=== PATIENT | female | born 1955 | race Caucasian/White ===

== ENCOUNTER → 2017-02-02 | Outpatient (CLI) | payer BC ==
[~2017-02-02] MED LIST: ALBUTEROL17 GM INH; ALLI PO; BACITRACIN30 GM TOP; CIPRO PO; CYMBALTA PO; DIOVAN PO; DULOXETINE HCL30 MG PO; FAMOTIDINE PO; FISH OIL 1,0001 EAC1 PO; HCTZ PO; KCL PO; KLOR-CON PO; LEXAPRO PO; MED FOR STOMACH; MOTRIN400 M1 PO; NEXIUM PO; OMEGA 3 FATTY ACIDS PO; OMEPRAZOLE40 M1 PO; PHENERGAN25 M1 PO; POTASSIUM GLUCO99 MG PO; POTASSIUM OTC PO; POTASSIUM99 M2 PO; PRILOSEC; PRILOSEC PO; PROAIR HFA8.5 GM INH; ROBITUSSIN100 MG/51 PO; TAGAMET PO; TYLOX 5/500 CAP1 CAP PO; VICODIN 5/500 T1 TAB PO
--- NOTE | ~2017-02-02 | CR61 ---
[facility] A Service of [facility] RADIOLOGY TEXT RESULTS PATIENT: EMELY ZARAGOZA LOCATION: [facility] : 55 UNIT #: [id number] AGE: [address]: Orly Alfonso MD SEX: F ORDER DR: [id number] [facility] [address] [place], [place] [address] [id number] O MR#: [id number] Acc #: [id number] NAME: EMELY ZARAGOZA : 1955 SEX: F STUDY DATE/TIME: 02/02/2017 13:26 UNIT: [facility] ROOM: STUDY DESCRIPTION: CR Cervical Spine Min 5 Views Attending Physician: Orly Alfonso M.D. Referring Physician: Orly Alfonso M.D. Ordering Physician: Orly Alfonso M.D. Primary Care Physician: Orly Alfonso M.D. MEDICAL IMAGING REPORT This report is preliminary unless electronic signature is present EXAM Cervical spine series dated 02/02/2017. COMPARISON None. HISTORY Upper extremity numbness, tingling. Right great toe pain and neck pain for 2-3 months. FINDINGS Frontal, lateral, swimmers, bilateral obliques, open-mouth C1-2 views were obtained. These 6 views demonstrate expected bony alignment, architecture and mineralization. No acute displaced fracture, subluxation or significant neural foraminal narrowing is seen. Positioning of the left oblique view is limited. Pre and paravertebral soft tissues are unremarkable. IMPRESSION No significant demonstrable abnormality. MRI of the cervical spine is more sensitive and specific in evaluation of disc herniation, canal stenosis and cord abnormalities. Dictated by... Trini Wright M.D. THIS IS AN ELECTRONICALLY VERIFIED REPORT Trini Wright M.D. at 02/03/2017 2:51 PM CPR/bd TD: 02/03/2017 13:47 JOB #: [id number] [facility] A Service of [facility] / [facility] RADIOLOGY TEXT RESULTS PATIENT: EMELY ZARAGOZA LOCATION: [facility] #: [id number] : 55 UNIT #: [id number] AGE: [address]: Orly Alfonso MD SEX: F ORDER DR: MEDICAL IMAGING REPORT Page 1 of 1 COPY
--- NOTE | ~2017-02-02 | CR138 ---
[facility] A Service of [facility] RADIOLOGY TEXT RESULTS PATIENT: EMELY ZARAGOZA LOCATION: [facility] : 55 UNIT #: [id number] AGE: [address]: Orly Alfonso MD SEX: F ORDER DR: [id number] [facility] [address] [place], [place] [address] [id number] O MR#: [id number] Acc #: [id number] NAME: EMELY ZARAGOZA : 1955 SEX: F STUDY DATE/TIME: 02/02/2017 13:25 UNIT: [facility] ROOM: STUDY DESCRIPTION: CR Hand 2 Views Lt Attending Physician: Orly Alfonso M.D. Referring Physician: Orly Alfonso M.D. Ordering Physician: Orly Alfonso M.D. Primary Care Physician: Orly Alfonso M.D. MEDICAL IMAGING REPORT This report is preliminary unless electronic signature is present EXAM Left hand. INDICATION Left hand numbness for 2 to 3 months. Tingling. FINDINGS AP and lateral views of the left hand were obtained. The bones appear normal. There is no degenerative change or fracture. IMPRESSION Normal left hand. Dictated by... Asael Song M.D. THIS IS AN ELECTRONICALLY VERIFIED REPORT Asael Song M.D. at 02/03/2017 3:38 PM FEL/joaquim TD: 02/03/2017 13:46 JOB #: [id number] MEDICAL IMAGING REPORT Page 1 of 1 COPY
--- NOTE | ~2017-02-02 | CR139 ---
[facility] A Service of [facility] RADIOLOGY TEXT RESULTS PATIENT: EMELY ZARAGOZA LOCATION: [facility] : 55 UNIT #: [id number] AGE: [address]: Orly Alfonso MD SEX: F ORDER DR: [id number] [facility] [address] [place], [place] [address] [id number] O MR#: [id number] Acc #: [id number] NAME: EMELY ZARAGOZA : 1955 SEX: F STUDY DATE/TIME: 02/02/2017 13:25 UNIT: [facility] ROOM: STUDY DESCRIPTION: CR Hand 2 Views Rt Attending Physician: Orly Alfonso M.D. Referring Physician: Orly Alfonso M.D. Ordering Physician: Orly Alfonso M.D. Primary Care Physician: Orly Alfonso M.D. MEDICAL IMAGING REPORT This report is preliminary unless electronic signature is present EXAM Right hand INDICATION Right hand numbness for 2-3 months. FINDINGS An AP and lateral view of the right hand were obtained. The bones appear normal. There is no fracture or degenerative change. IMPRESSION Normal hand. Dictated by... Asael Song M.D. THIS IS AN ELECTRONICALLY VERIFIED REPORT Asael Song M.D. at 02/03/2017 3:38 PM BERTRAND/silvestre TD: 02/03/2017 14:09 JOB #: [id number] MEDICAL IMAGING REPORT Page 1 of 1 COPY
--- NOTE | ~2017-02-02 | CR124 ---
[facility] A Service of [facility] & [facility] RADIOLOGY TEXT RESULTS PATIENT: EMELY ZARAGOZA LOCATION: [facility] : 55 UNIT #: [id number] AGE: [address]: Orly Alfonso MD SEX: F ORDER DR: [id number] [facility] [address] [place], [place] [address] [id number] O MR#: [id number] Acc #: [id number] NAME: EMELY ZARAGOZA : 1955 SEX: F STUDY DATE/TIME: 02/02/2017 13:26 UNIT: [facility] ROOM: STUDY DESCRIPTION: CR Foot 2 Views Rt Attending Physician: Orly Alfonso M.D. Referring Physician: Orly Alfonso M.D. Ordering Physician: Orly Alfonso M.D. Primary Care Physician: Orly Alfonso M.D. MEDICAL IMAGING REPORT This report is preliminary unless electronic signature is present EXAM Right foot INDICATION Right great toe pain for 2-3 months. FINDINGS AP and lateral views of the right foot were obtained. There is marked degenerative change at the first tarsometatarsal with joint space narrowing osteophyte formation. The bones are normal. IMPRESSION There is degenerative change the first tarsometatarsal joint. Otherwise, the study is normal. Dictated by... Asael Song M.D. THIS IS AN ELECTRONICALLY VERIFIED REPORT Asael Song M.D. at 02/03/2017 3:38 PM BERTRAND/silvestre TD: 02/03/2017 14:10 JOB #: [id number] MEDICAL IMAGING REPORT Page 1 of 1 COPY
== END | disposition home or self-care (01) ==
LOC: CRAD 13:11
DX: M25.542 Pain in joints of left hand (principal); M25.541 Pain in joints of right hand; R20.2 Paresthesia of skin; M25.571 Pain in right ankle and joints of right foot; M19.071 Primary osteoarthritis, right ankle and foot
CPT/HCPCS: 72050; 73120; 73620